=== PATIENT | male | born 1940 | race Caucasian/White ===

== ENCOUNTER → 2016-11-13 | Outpatient (CLI) | payer MEDICARE, OTHER ==
[~2016-11-13] MED LIST: BETAMETHASONE 6mg/ml INJECTION IM ONE; BUPIVACAINE 0.25% (2.5mg/ml) INJ 30ml SDV ONE; IOTHALAMATE MEGLUMINE 60% (600mg/ml) 30ml INJ IV ONE; LIDOCAINE 1% (10mg/ml) 5ml VIAL ONE
--- NOTE | 2016-11-13 11:25 | DI ---
Indication:ITS.REASON: M19.011 Primary osteoarthritis, RT; M75.41 Impingement syndrome Procedure:INJECTION/DRN SHOULDER RT W/FL. THERAPEUTIC SHOULDER INJECTION: After discussing the details of the procedure, including the risks, the patient wished to proceed. Informed consent was obtained. A preprocedural timeout was performed to confirm the correct patient and procedure. Using aseptic technique, local lidocaine anesthetic, and fluoroscopic guidance throughout, a 22-gauge infiltrating needle was directed through the rotator cuff interval and into the joint of the right shoulder. A small amount of x-ray contrast was injected to confirm proper intra-articular placement of the needle tip. A fluoroscopic image was obtained. Following this, a combination of 3 cc 1% lidocaine, 3 cc 0.25% bupivacaine, and 1 cc betamethasone were slowly instilled within the joint of the right shoulder. The needle was removed. The patient tolerated this procedure well. Following this, he left the imaging department in stable condition. Impression: Technically successful right intra-articular shoulder joint injection for therapeutic purposes. Fluoroscopy dose: 1.35 mGy (Cumulative air kerma) Zach Pina RPA/CELESTE performed this under my personal supervision. .
== END ==
LOC: IMA 10:31
PROVIDERS: ATTEND Orthopaedic Surgery
DX: M19.011 Primary osteoarthritis, right shoulder (principal); M75.41 Impingement syndrome of right shoulder
CPT/HCPCS: 20610; 77002; J0702; Q9961